=== PATIENT | male | born 1960 | race Caucasian/White ===

== ENCOUNTER 2021-09-03 14:21 | Emergency (ER) | payer OTHER, SELFPAY ==
[~2021-09-03] VITALS: Ht 172.7 cm; Wt 73.0 kg
[2021-09-03 16:13] VITALS: BP_SYST 148
--- NOTE | 2021-09-03 16:37 | NUR ---
Patient to ER bed 07 to gown for evaluation. Side rails up.
--- NOTE | 2021-09-03 16:50 | NUR ---
Dr Santoro evaluating patient at bedside
[2021-09-03] MEDS ORDERED: NACL 0.9% 1,000 ML IV ONE (17:00)
[2021-09-03] MEDS ORDERED: KETOROLAC TROMETHAMINE 30 MG VIAL IVP ONE (17:00)
--- NOTE | 2021-09-03 17:10 | NUR ---
Minimal report received on patient. Per report received from Francisca RUTH, patient reporting left low back pain x 2 days and was seen at a doctor's office who referred him here for blood in urine and r/o kidney stone.
--- NOTE | 2021-09-03 17:10 | NUR ---
Patient transported to CT scan via [facility]
--- NOTE | 2021-09-03 17:20 | NUR ---
# 20 gauge angiocath placed to L forearm. Use of asceptic technique. Opsite placed over site. Blood return noted. Blood for lab drawn from site. Flushed with 10 cc of normal saline. No evidence of infiltration noted. Patient tolerated well.
[2021-09-03 17:41] LABS: BILIRUBIN,URINE NEGATIVE (NEGATIVE); BLOOD, URINE 2+ (NEGATIVE); COLOR,URINE YELLOW (YELLOW); GLUCOSE,URINE NEGATIVE (NEGATIVE); KETONES,URINE 1+ (NEGATIVE); LEUKOCYTE ESTERASE ,URINE NEGATIVE (NEGATIVE); NITRITE, URINE NEGATIVE (NEGATIVE); PH,URINE 5.5 (5.0-8.0); PROTEIN URINE NEGATIVE (NEGATIVE)
[2021-09-03 17:57] LABS: BASOPHILS % (AUTO) 0.2 % (0.0-2.0); EOSINOPHILS % (AUTO) 0.1 % (0.0-4.0); HEMATOCRIT 44.1 % (36-54); LYMPHOCYTES # (AUTO) 1.2 K/uL (1.0-5.5); LYMPHOCYTES % (AUTO) 9.7 % (20.5-51.5); MEAN CORPUSCULAR HEMOGLOBIN 31 pg (27-31); MEAN CORPUSCULAR HGB CONC 34 % (32-36); MEAN CORPUSCULAR VOLUME 90 fL (79.0-98.0); MONOCYTES # (AUTO) 1.2 K/uL (0.0-1.0); MONOCYTES % (AUTO) 9.5 % (1.7-9.3); NEUTROPHILS # (AUTO) 10.1 K/uL (1.8-7.7); NEUTROPHILS % (AUTO) 80.5 % (40.0-70.0); PLATELET COUNT (AUTO) 360 K/uL (130-430); RED CELL DISTRIBUTION WIDTH 12.8 % (9.0-15.0); WHITE BLOOD COUNT (AUTO) 12.6 K/uL (4.8-10.8)
[2021-09-03 18:04] LABS: CALCIUM 9.5 mg/dL (8.4-11.0); CREATININE 1.15 mg/dL (0.55-1.30); POTASSIUM 4.6 mmol/L (3.5-5.1)
[2021-09-03 18:11] LABS: ALBUMIN 3.7 g/dL (3.4-4.8)
--- NOTE | 2021-09-03 18:13 | NUR ---
Patient moved to room 3 per fire extinguisher charger. This RN to maintain care of patient.
[2021-09-03] MEDS ORDERED: MORPHINE 4 MG INJ. 4 MG/ML VIAL IVP ONE (18:15)
[2021-09-03 18:51] LABS: CLARITY/URINE SLIGHTLY HAZY (CLEAR)
--- NOTE | 2021-09-03 19:02 | NUR ---
Pt's BP 146/92 and SpO2 98% before administering IV Morphine
--- NOTE | 2021-09-03 19:12 | NUR ---
Report given to Ry RUTH to assume care of patient
[2021-09-03] MEDS ORDERED: OXYC-128 PO (19:48)
[2021-09-03 20:12] VITALS: BP_SYST 148
--- NOTE | 2021-09-03 20:13 | NUR ---
Patient given written and verbal discharge instructions and verbalizes understanding. ER MD discussed with patient the results and treatment provided. Patient in stable condition. ID arm band removed. IV catheter removed intact and dressing applied, no active bleeding. Rx of percocet given. Patient educated on pain management and to follow up with PMD. Pain Scale 0/10. Opportunity for questions provided and answered. Medication side effect fact sheet provided.
[2021-09-03 20:35] LABS: BACTERIA,URINE FEW /HPF (None Seen); MUCUS,URINE 1+ /LPF (None Seen); WBC,URINE 0-3 /HPF (0-3)
== END 2021-09-03 20:13 | disposition home or self-care (01) ==
LOC: SED 14:21
DX: N20.1 Calculus of ureter (principal); Z79.899 Other long term (current) drug therapy
CPT/HCPCS: 36415; 74176; 76376; 80053; 81000; 85025; 96361; 96374; 96375; 99284; J1885; J2270; J7030